=== PATIENT | female | born 1950 | race Caucasian/White ===

== ENCOUNTER 2017-10-14 17:01 | Emergency (ER) | payer MEDICARE, OTHER ==
[2017-10-14] MEDS: SOD CHLORIDE 0.9% 1,000 ML IV (17:51)
[2017-10-14] MEDS: ONDANSETRON 4 MG INJ IV (17:51)
[2017-10-14] MEDS: HYDROmorphONE 1 MG/5 ML IV SYRINGE IV (17:52)
[2017-10-14 18:05] LABS: ADD MAN DIFF? NO
[2017-10-14 18:07] LABS: WHITE BLOOD COUNT 11.4 10^3/ul (4.8-10.8)
[2017-10-14 18:07] LABS: ABNORMAL IP MESSAGE 1; BASOPHILS % 0.4 % (0.0-2.0); EOSINOPHILS # 0.4 10^3/ul (0.0-0.5); EOSINOPHILS % 3.2 % (0.0-7.0); HEMATOCRIT 41.6 % (37.0-47.0); HEMOGLOBIN 13.3 g/dl (12.0-16.0); LYMPHOCYTES # 2.3 10^3/ul (0.8-2.9); LYMPHOCYTES % 20.4 % (15.0-51.0); MEAN CORPUSCULAR VOLUME 93.9 fl (82.0-101.0); MEAN PLATELET VOLUME 13.2 fl (7.4-10.4); MONOCYTE # 0.7 10^3/ul (0.3-0.9); MONOCYTES % 6.3 % (0.0-11.0); NEUTROPHIL # 7.9 10^3/ul (1.6-7.5); NEUTROPHILS % 69.3 % (39.0-77.0); PLATELET COUNT 185 10^3/UL (140-415); RED BLOOD COUNT 4.43 10^6/ul (4.20-5.40); RED CELL DISTRIBUTION WIDTH 12.7 % (11.5-14.5)
[2017-10-14 18:17] LABS: POSITIVE DIFF @See below
[2017-10-14 18:27] LABS: INR 0.88; PT RATIO 0.9
[2017-10-14 18:28] LABS: PARTIAL THROMBOPLASTIN TIME 31.5 Sec (25.0-35.0)
[2017-10-14 18:41] LABS: ALANINE AMINOTRANSFERASE 18 IU/L (13-69); ALBUMIN 4.1 g/dl (3.3-4.9); ALBUMIN/GLOBULIN RATIO 1.13; ALKALINE PHOSPHATASE 88 IU/L (42-121); AMYLASE 75 U/L (11-123); ANION GAP 14 (8-16); ASPARTATE AMINO TRANSFERASE 25 IU/L (15-46); BILIRUBIN,INDIRECT 0.2 mg/dl (0-1.1); BILIRUBIN,TOTAL 0.2 mg/dl (0.2-1.3); BLOOD UREA NITROGEN 16 mg/dl (7-20); CARBON DIOXIDE 31 mmol/L (21-31); CHLORIDE 102 mmol/L (97-110); CREATININE 0.76 mg/dl (0.44-1.00); GLUCOSE 111 mg/dl (70-220); LIPASE 72 U/L (23-300); POTASSIUM 4.6 mmol/L (3.5-5.1); SODIUM 142 mmol/L (135-144); TOTAL PROTEIN 7.7 g/dl (6.1-8.1)
[2017-10-14 18:53] LABS: TROPONIN-I < 0.012 ng/ml (0.00-0.12)
[2017-10-14] MEDS ORDERED: KETOROLAC 30 MG INJ IV (19:33)
== END 2017-10-14 20:23 | disposition home or self-care (01) ==
LOC: E/R 17:01
DX: K80.20 Calculus of gallbladder without cholecystitis without obstruction (principal); I10 Essential (primary) hypertension; R40.2142 Coma scale, eyes open, spontaneous, at arrival to emergency department; R40.2362 Coma scale, best motor response, obeys commands, at arrival to emergency department; R40.2252 Coma scale, best verbal response, oriented, at arrival to emergency department
CPT/HCPCS: 76705; 80053; 82150; 83690; 84484; 85025; 85610; 85730; 93005; 96374; 96375; 99285-25

== ENCOUNTER 2017-10-16 15:23 | Emergency (ER) | payer MEDICARE, OTHER ==
[2017-10-16 18:08] LABS: ADD MAN DIFF? NO
[2017-10-16 18:12] LABS: ABNORMAL IP MESSAGE 1; BASOPHIL # 0.1 10^3/ul (0.0-0.1); BASOPHILS % 0.5 % (0.0-2.0); EOSINOPHILS # 0.2 10^3/ul (0.0-0.5); EOSINOPHILS % 2.2 % (0.0-7.0); HEMATOCRIT 42.1 % (37.0-47.0); HEMOGLOBIN 13.6 g/dl (12.0-16.0); LYMPHOCYTES # 2.7 10^3/ul (0.8-2.9); LYMPHOCYTES % 27.7 % (15.0-51.0); MEAN CORPUSCULAR HEMOGLOBIN 30.5 pg (29.0-33.0); MEAN CORPUSCULAR HGB CONC 32.3 g/dl (32.0-37.0); MEAN CORPUSCULAR VOLUME 94.4 fl (82.0-101.0); MEAN PLATELET VOLUME 13.5 fl (7.4-10.4); MONOCYTE # 0.7 10^3/ul (0.3-0.9); MONOCYTES % 7.5 % (0.0-11.0); NEUTROPHIL # 5.9 10^3/ul (1.6-7.5); NEUTROPHILS % 61.8 % (39.0-77.0); PLATELET COUNT 192 10^3/UL (140-415); RED BLOOD COUNT 4.46 10^6/ul (4.20-5.40); RED CELL DISTRIBUTION WIDTH 12.6 % (11.5-14.5)
[2017-10-16 18:12] LABS: WHITE BLOOD COUNT 9.6 10^3/ul (4.8-10.8)
[2017-10-16 18:18] LABS: POSITIVE DIFF @See below
[2017-10-16 18:31] LABS: ALANINE AMINOTRANSFERASE 21 IU/L (13-69); ALBUMIN/GLOBULIN RATIO 1.17; ALKALINE PHOSPHATASE 81 IU/L (42-121); ANION GAP 14 (8-16); ASPARTATE AMINO TRANSFERASE 22 IU/L (15-46); BILIRUBIN,INDIRECT 0.2 mg/dl (0-1.1); BILIRUBIN,TOTAL 0.2 mg/dl (0.2-1.3); BLOOD UREA NITROGEN 15 mg/dl (7-20); CALCIUM 8.6 mg/dl (8.4-10.2); CARBON DIOXIDE 31 mmol/L (21-31); CHLORIDE 104 mmol/L (97-110); CREATININE 0.76 mg/dl (0.44-1.00); GLUCOSE 88 mg/dl (70-220); LIPASE 56 U/L (23-300); POTASSIUM 4.3 mmol/L (3.5-5.1); SODIUM 145 mmol/L (135-144); TOTAL PROTEIN 7.4 g/dl (6.1-8.1)
== END 2017-10-16 22:45 | disposition home or self-care (01) ==
LOC: E/R 22:45
DX: K80.50 Calculus of bile duct without cholangitis or cholecystitis without obstruction (principal); I10 Essential (primary) hypertension; Z79.01 Long term (current) use of anticoagulants; Z96.659 Presence of unspecified artificial knee joint
CPT/HCPCS: 36415; 78226; 80053; 81025; 83690; 85025; 99283-25

== ENCOUNTER 2018-01-18 17:14 | Emergency (ER) | payer MEDICARE, OTHER | END 2018-01-18 20:51 | disposition home or self-care (01) | LOC: FTE 17:14 | DX: L29.9 Pruritus, unspecified (principal); R21 Rash and other nonspecific skin eruption; I10 Essential (primary) hypertension; I50.9 Heart failure, unspecified; Z79.01 Long term (current) use of anticoagulants; Z96.653 Presence of artificial knee joint, bilateral | CPT/HCPCS: 93971; 99284-25 ==

== ENCOUNTER 2018-10-27 16:00 | Emergency (ER) | payer MEDICARE, OTHER ==
[2018-10-27 16:26] LABS: URINE PH (Dip) POC 5.5 (5.0-8.5)
[2018-10-27 16:26] LABS: URINE BLOOD (Dip) POC 1+ (NEGATIVE); URINE GLUCOSE (Dip) POC Negative (NEGATIVE); URINE KETONES (Dip) POC Negative (NEGATIVE); URINE LEUKOCYTE EST (Dip) POC 1+ (NEGATIVE); URINE NITRITE (Dip) POC Negative (NEGATIVE); URINE TOTAL PROTEIN POC Negative (NEGATIVE)
[2018-10-27] MEDS: ONDANSETRON 4 MG INJ IV (16:42)
[2018-10-27] MEDS: SOD CHLORIDE 0.9% 500 ML IV (16:42)
[2018-10-27] MEDS: KETOROLAC 15 MG INJ IV (16:43)
[2018-10-27 16:50] LABS: ADD MAN DIFF? NO
[2018-10-27 16:51] LABS: WHITE BLOOD COUNT 11.9 10^3/ul (4.8-10.8)
[2018-10-27 16:51] LABS: ABNORMAL IP MESSAGE 1; BASOPHIL # 0.1 10^3/ul (0.0-0.1); BASOPHILS % 0.4 % (0.0-2.0); EOSINOPHILS # 0.3 10^3/ul (0.0-0.5); EOSINOPHILS % 2.4 % (0.0-7.0); HEMATOCRIT 42.3 % (37.0-47.0); HEMOGLOBIN 13.1 g/dl (12.0-16.0); LYMPHOCYTES # 2.7 10^3/ul (0.8-2.9); LYMPHOCYTES % 22.5 % (15.0-51.0); MEAN CORPUSCULAR HEMOGLOBIN 28.7 pg (29.0-33.0); MEAN CORPUSCULAR VOLUME 92.8 fl (82.0-101.0); MEAN PLATELET VOLUME 13.6 fl (7.4-10.4); MONOCYTE # 0.9 10^3/ul (0.3-0.9); MONOCYTES % 7.3 % (0.0-11.0); NEUTROPHILS % 67.1 % (39.0-77.0); PLATELET COUNT 217 10^3/UL (140-415); RED BLOOD COUNT 4.56 10^6/ul (4.20-5.40); RED CELL DISTRIBUTION WIDTH 13.6 % (11.5-14.5)
[2018-10-27 16:57] LABS: POSITIVE DIFF @See below
[2018-10-27 16:58] LABS: ALANINE AMINOTRANSFERASE 16 IU/L (13-69); ALBUMIN 4.3 g/dl (3.3-4.9); ALBUMIN/GLOBULIN RATIO 1.26; ALKALINE PHOSPHATASE 87 IU/L (42-121); ANION GAP 8 (5-13); ASPARTATE AMINO TRANSFERASE 22 IU/L (15-46); BILIRUBIN,INDIRECT 0.4 mg/dl (0-1.1); BILIRUBIN,TOTAL 0.4 mg/dl (0.2-1.3); BLOOD UREA NITROGEN 17 mg/dl (7-20); CARBON DIOXIDE 32 mmol/L (21-31); CHLORIDE 103 mmol/L (97-110); CREATININE 0.78 mg/dl (0.44-1.00); Estimated GFR > 60 mL/min (>60); GLUCOSE 92 mg/dl (70-220); LIPASE 52 U/L (23-300); SODIUM 143 mmol/L (135-144); TOTAL PROTEIN 7.7 g/dl (6.1-8.1)
[2018-10-27] MEDS: CEPHALEXIN 500 MG CAP PO (17:33)
== END 2018-10-27 18:00 | disposition home or self-care (01) ==
LOC: E/R 16:00
DX: K80.20 Calculus of gallbladder without cholecystitis without obstruction (principal); N39.0 Urinary tract infection, site not specified; I11.0 Hypertensive heart disease with heart failure; I50.9 Heart failure, unspecified; E66.01 Morbid (severe) obesity due to excess calories; Z68.42 Body mass index [BMI] 45.0-49.9, adult; Z79.01 Long term (current) use of anticoagulants; Z96.653 Presence of artificial knee joint, bilateral
CPT/HCPCS: 36415; 80053; 81003; 83690; 85025; 96361; 96374; 96375; 99284-25

== ENCOUNTER 2018-11-14 16:04 | Observation (INO) | payer MEDICARE, OTHER ==
[2018-11-14 17:36] LABS: ADD MAN DIFF? NO
[2018-11-14 17:39] LABS: BASOPHIL # 0.1 10^3/ul (0.0-0.1); BASOPHILS % 0.6 % (0.0-2.0); EOSINOPHILS # 0.2 10^3/ul (0.0-0.5); EOSINOPHILS % 2.2 % (0.0-7.0); HEMATOCRIT 42.6 % (37.0-47.0); HEMOGLOBIN 13.5 g/dl (12.0-16.0); LYMPHOCYTES # 2.8 10^3/ul (0.8-2.9); LYMPHOCYTES % 26.4 % (15.0-51.0); MEAN CORPUSCULAR HEMOGLOBIN 28.5 pg (29.0-33.0); MEAN CORPUSCULAR HGB CONC 31.7 g/dl (32.0-37.0); MEAN CORPUSCULAR VOLUME 89.9 fl (82.0-101.0); MEAN PLATELET VOLUME 12.8 fl (7.4-10.4); MONOCYTE # 0.7 10^3/ul (0.3-0.9); MONOCYTES % 6.3 % (0.0-11.0); NEUTROPHIL # 6.8 10^3/ul (1.6-7.5); NEUTROPHILS % 64.2 % (39.0-77.0); PLATELET COUNT 217 10^3/UL (140-415); RED BLOOD COUNT 4.74 10^6/ul (4.20-5.40); RED CELL DISTRIBUTION WIDTH 13.4 % (11.5-14.5)
[2018-11-14 17:39] LABS: WHITE BLOOD COUNT 10.5 10^3/ul (4.8-10.8)
[2018-11-14 17:59] LABS: ANION GAP 7 (5-13); BLOOD UREA NITROGEN 12 mg/dl (7-20); CARBON DIOXIDE 28 mmol/L (21-31); CHLORIDE 106 mmol/L (97-110); CREATININE 0.68 mg/dl (0.44-1.00); Estimated GFR > 60 mL/min (>60); GLUCOSE 93 mg/dl (70-220); INR 1.52; POTASSIUM 4.1 mmol/L (3.5-5.1); PROTIME 18.4 Sec (11.9-14.9); PT RATIO 1.4; SODIUM 141 mmol/L (135-144)
[2018-11-14 18:00] LABS: PARTIAL THROMBOPLASTIN TIME 44.6 Sec (23.0-35.0)
[2018-11-14 18:11] LABS: TROPONIN-I < 0.012 ng/ml (0.000-0.120)
[2018-11-14] MEDS: ASPIRIN 81 MG TAB PO (18:29)
[2018-11-14] MEDS: NITROGLYCERIN 2% 1 GM OINT PKT TD (18:29)
[2018-11-14] MEDS ORDERED: DOCUSATE SODIUM 100 MG CAP PO (19:30)
[2018-11-14] MEDS ORDERED: ONDANSETRON 4 MG INJ IV (19:30)
[2018-11-14] MEDS ORDERED: hydrALAzine 20 MG INJ IV (19:30)
[2018-11-14] MEDS ORDERED: MAGNESIUM HYDROXIDE 30ML CUP PO (19:30)
[2018-11-14] MEDS ORDERED: NACL 0.9% 3 ML SYG IV (19:30)
[2018-11-14] MEDS ORDERED: ACETAMINOPHEN 325 MG TAB PO (19:30)
[2018-11-14 20:33] LABS: B-TYPE NATRIURETIC PEPTIDE 106 PG/ML (0-125)
[2018-11-14] MEDS: GABAPENTIN 300 MG CAP PO (20:33)
[2018-11-14] MEDS: URSODIOL 250 MG TAB PO (20:33)
[2018-11-14] MEDS: WARFARIN 10 MG TAB PO (20:33)
[2018-11-14] MEDS: CYCLOSPORINE 0.05% OPH DROPERETTE BOTH EYES (20:34)
[2018-11-14] MEDS: METOPROLOL (XL) 100 MG TAB PO (20:35)
[2018-11-14] MEDS: ATORVASTATIN 40 MG TAB PO (20:46)
[2018-11-14 23:18] LABS: CREATINE KINASE 211 IU/L (23-200)
[2018-11-14 23:31] LABS: CK INDEX 0.7; CK-MB 1.48 ng/ml (0.0-2.4); TROPONIN-I < 0.012 ng/ml (0.000-0.120)
[2018-11-14] MEDS: NITROGLYCERIN (SL) 0.4 MG TAB SL ×2 (23:38→23:43)
[2018-11-15 05:46] LABS: ADD MAN DIFF? NO
[2018-11-15] MEDS: PANTOPRAZOLE (EC) 40 MG TAB PO (05:52)
[2018-11-15] MEDS: KETOROLAC 15 MG INJ IV ×2 (05:52)
[2018-11-15 06:00] LABS: ABNORMAL IP MESSAGE 1; BASOPHIL # 0.1 10^3/ul (0.0-0.1); BASOPHILS % 0.8 % (0.0-2.0); EOSINOPHILS # 0.3 10^3/ul (0.0-0.5); EOSINOPHILS % 3.9 % (0.0-7.0); HEMATOCRIT 40.1 % (37.0-47.0); HEMOGLOBIN 12.7 g/dl (12.0-16.0); LYMPHOCYTES # 2.3 10^3/ul (0.8-2.9); LYMPHOCYTES % 31.1 % (15.0-51.0); MEAN CORPUSCULAR HEMOGLOBIN 28.3 pg (29.0-33.0); MEAN CORPUSCULAR HGB CONC 31.7 g/dl (32.0-37.0); MEAN CORPUSCULAR VOLUME 89.5 fl (82.0-101.0); MEAN PLATELET VOLUME 13.1 fl (7.4-10.4); MONOCYTE # 0.6 10^3/ul (0.3-0.9); MONOCYTES % 7.8 % (0.0-11.0); NEUTROPHIL # 4.2 10^3/ul (1.6-7.5); NEUTROPHILS % 56.1 % (39.0-77.0); PLATELET COUNT 193 10^3/UL (140-415); RED BLOOD COUNT 4.48 10^6/ul (4.20-5.40); RED CELL DISTRIBUTION WIDTH 13.7 % (11.5-14.5)
[2018-11-15 06:00] LABS: WHITE BLOOD COUNT 7.4 10^3/ul (4.8-10.8)
[2018-11-15 06:09] LABS: ANION GAP 7 (5-13); BLOOD UREA NITROGEN 13 mg/dl (7-20); CALCIUM 8.6 mg/dl (8.4-10.2); CARBON DIOXIDE 27 mmol/L (21-31); CHLORIDE 107 mmol/L (97-110); CREATINE KINASE 192 IU/L (23-200); CREATININE 0.61 mg/dl (0.44-1.00); Estimated GFR > 60 mL/min (>60); GLUCOSE 107 mg/dl (70-220); MAGNESIUM 2.2 mg/dl (1.7-2.5); POTASSIUM 3.7 mmol/L (3.5-5.1); SODIUM 141 mmol/L (135-144)
[2018-11-15 06:14] LABS: HEMOGLOBIN A1C 5.5 % (0-5.9)
[2018-11-15 06:15] LABS: POSITIVE DIFF @See below
[2018-11-15 06:20] LABS: PROTIME 19.1 Sec (11.9-14.9); PT RATIO 1.5
[2018-11-15 06:21] LABS: CK INDEX 0.7; CK-MB 1.25 ng/ml (0.0-2.4); TROPONIN-I < 0.012 ng/ml (0.000-0.120)
[2018-11-15] MEDS: LEVOTHYROXINE 137 MCG TAB PO (06:28)
[2018-11-15] MEDS: CYCLOSPORINE 0.05% OPH DROPERETTE BOTH EYES ×2 (08:47→20:30)
[2018-11-15] MEDS: METOPROLOL (XL) 100 MG TAB PO ×2 (08:47→20:34)
[2018-11-15] MEDS: GABAPENTIN 300 MG CAP PO ×2 (08:47→20:30)
[2018-11-15] MEDS: PREGABALIN 50 MG CAP PO ×2 (08:48→20:29)
[2018-11-15] MEDS: FUROSEMIDE 20 MG TAB PO (08:48)
[2018-11-15] MEDS: POTASSIUM CHLORIDE (SR) 10 MEQ TAB PO (08:48)
[2018-11-15] MEDS: DULOXETINE 30 MG CAP DR PO (08:48)
[2018-11-15] MEDS: POTASSIUM CHLORIDE (SR) 20 MEQ TAB PO (08:59)
[2018-11-15] MEDS: URSODIOL 250 MG TAB PO ×3 (09:00→20:30)
[2018-11-15] MEDS: NAPROXEN 500 MG TAB PO ×2 (10:48→20:29)
[2018-11-15] MEDS: ISOSORBIDE DINITRATE 10 MG TAB PO (20:29)
[2018-11-15] MEDS: ATORVASTATIN 40 MG TAB PO (20:30)
[2018-11-15] MEDS: WARFARIN 10 MG TAB PO (20:30)
[2018-11-16] MEDS: PANTOPRAZOLE (EC) 40 MG TAB PO (06:06)
[2018-11-16] MEDS: LEVOTHYROXINE 137 MCG TAB PO (06:10)
[2018-11-16 06:40] LABS: CHOLESTEROL 169 mg/dl (100-200)
[2018-11-16 06:40] LABS: CHOL/HDL RATIO 3.6 RATIO; HDL CHOLESTEROL 46 mg/dl (35-98); LDL CHOLESTEROL,CALCULATED 110 mg/dl; TRIGLYCERIDES 65 mg/dl (0-149)
[2018-11-16 06:57] LABS: TROPONIN-I < 0.012 ng/ml (0.000-0.120)
[2018-11-16] MEDS: METOPROLOL (XL) 50 MG TAB PO (09:00)
[2018-11-16] MEDS: ISOSORBIDE DINITRATE 10 MG TAB PO ×2 (09:24→13:52)
[2018-11-16] MEDS: PREGABALIN 100 MG CAP PO (09:28)
[2018-11-16] MEDS: HYDROCODONE/APAP (10/325) TAB PO (09:29)
[2018-11-16] MEDS: FUROSEMIDE 20 MG TAB PO (09:29)
[2018-11-16] MEDS: URSODIOL 250 MG TAB PO ×2 (09:29→13:51)
[2018-11-16] MEDS: POTASSIUM CHLORIDE (SR) 10 MEQ TAB PO (09:30)
[2018-11-16] MEDS: DULOXETINE 30 MG CAP DR PO (09:30)
[2018-11-16] MEDS: NAPROXEN 500 MG TAB PO (09:30)
[2018-11-16] MEDS: GABAPENTIN 300 MG CAP PO (09:30)
[2018-11-16] MEDS: CYCLOSPORINE 0.05% OPH DROPERETTE BOTH EYES (13:52)
== END 2018-11-16 15:30 | disposition home or self-care (01) ==
LOC: 6WM 23:10 → E/R 16:04 → 6WM 18:46
PROVIDERS: Internal Medicine
DX: R07.89 Other chest pain (principal); E78.5 Hyperlipidemia, unspecified; I11.0 Hypertensive heart disease with heart failure; I50.32 Chronic diastolic (congestive) heart failure; I25.10 Atherosclerotic heart disease of native coronary artery without angina pectoris; E03.9 Hypothyroidism, unspecified; F41.1 Generalized anxiety disorder; E66.01 Morbid (severe) obesity due to excess calories; Z68.43 Body mass index [BMI] 50.0-59.9, adult; Z86.718 Personal history of other venous thrombosis and embolism; Z79.01 Long term (current) use of anticoagulants
CPT/HCPCS: 36415; 71045; 80048; 80061; 82550; 82553; 83036; 83735; 83880; 84443; 84484; 85025; 85610; 85730; 93005; 93306; 93970; 97161; 97167; 99285-25; G0378

== ENCOUNTER 2018-12-26 13:58 | Emergency (ER) | payer MEDICARE, OTHER ==
[2018-12-26] MEDS ORDERED: SOD CHLORIDE 0.9% 1,000 ML IV (15:53)
[2018-12-26 15:57] LABS: ADD MAN DIFF? NO
[2018-12-26 15:59] LABS: BASOPHILS % 0.4 % (0.0-2.0); EOSINOPHILS # 0.3 10^3/ul (0.0-0.5); EOSINOPHILS % 3.2 % (0.0-7.0); HEMATOCRIT 28.4 % (37.0-47.0); HEMOGLOBIN 8.5 g/dl (12.0-16.0); LYMPHOCYTES # 1.6 10^3/ul (0.8-2.9); LYMPHOCYTES % 19.3 % (15.0-51.0); MEAN CORPUSCULAR HEMOGLOBIN 27.4 pg (29.0-33.0); MEAN CORPUSCULAR HGB CONC 29.9 g/dl (32.0-37.0); MEAN CORPUSCULAR VOLUME 91.6 fl (82.0-101.0); MONOCYTE # 0.6 10^3/ul (0.3-0.9); NEUTROPHIL # 5.9 10^3/ul (1.6-7.5); PLATELET COUNT 196 10^3/UL (140-415); RED CELL DISTRIBUTION WIDTH 14.9 % (11.5-14.5)
[2018-12-26 15:59] LABS: WHITE BLOOD COUNT 8.4 10^3/ul (4.8-10.8)
[2018-12-26] MEDS: ONDANSETRON 4 MG INJ IV (16:04)
[2018-12-26] MEDS: morphine 4 MG/ML VIAL IV (16:04)
[2018-12-26 16:05] LABS: ALANINE AMINOTRANSFERASE 23 IU/L (13-69); ALBUMIN 3.6 g/dl (3.3-4.9); ALBUMIN/GLOBULIN RATIO 1.28; ALKALINE PHOSPHATASE 85 IU/L (42-121); ANION GAP 5 (5-13); ASPARTATE AMINO TRANSFERASE 23 IU/L (15-46); BILIRUBIN,INDIRECT 0.3 mg/dl (0-1.1); BILIRUBIN,TOTAL 0.3 mg/dl (0.2-1.3); BLOOD UREA NITROGEN 20 mg/dl (7-20); CALCIUM 8.7 mg/dl (8.4-10.2); CARBON DIOXIDE 29 mmol/L (21-31); CHLORIDE 108 mmol/L (97-110); CREATININE 0.66 mg/dl (0.44-1.00); Estimated GFR > 60 mL/min (>60); GLUCOSE 112 mg/dl (70-220); LIPASE 62 U/L (23-300); POTASSIUM 4.2 mmol/L (3.5-5.1); SODIUM 142 mmol/L (135-144); TOTAL PROTEIN 6.4 g/dl (6.1-8.1)
== END 2018-12-26 18:05 | disposition home or self-care (01) ==
LOC: E/R 18:05
DX: K80.20 Calculus of gallbladder without cholecystitis without obstruction (principal); I50.9 Heart failure, unspecified; I25.10 Atherosclerotic heart disease of native coronary artery without angina pectoris; I11.0 Hypertensive heart disease with heart failure; E66.9 Obesity, unspecified; Z79.01 Long term (current) use of anticoagulants; Z87.891 Personal history of nicotine dependence
CPT/HCPCS: 36415; 71045; 76705; 80053; 83690; 85025; 96374; 96375; 99285-25